=== PATIENT | female | born 1970 | race Two or more races ===

== ENCOUNTER 2021-11-05 16:52 | Emergency (ER) | payer SELFPAY ==
[~2021-11-05] VITALS: Ht 152.4 cm; Wt 76.6 kg
[2021-11-05 17:19] VITALS: BP 164/97
--- NOTE | 2021-11-05 18:53 | RAD ---
EXAMINATION: XR EXAM OF ANKLE_LEFT 3V CLINICAL HISTORY: Pain following fall. TECHNIQUE: XR EXAM OF ANKLE_LEFT 3V COMPARISON: None FINDINGS/ IMPRESSION: Joint spaces and alignment maintained. No acute fracture. Tiny posterior calcaneal enthesophyte. Mild soft tissue swelling through the ankle. Electronically signed by: Steve Ortega DO (11/05/2021 6:51 PM) [employer]
[2021-11-05] MEDS ORDERED: NAPR-514 PO (19:21)
--- NOTE | 2021-11-05 19:21 | PHYS DOC ---
Past Medical History Past Surgical History: No Surgical History Smoking Status: Never Smoker Alcohol Use: None General Adult EDM: Chief Complaint: ANKLE PROBLEM HPI: HPI: Patient is a 51 year old female with no significant medical history who presents the ED today complaining of a sharp 7 out of 10 left ankle pain that began yesterday after she tripped and fell down one step. Patient denies any loss of consciousness. Denies any chance she hit her head on the ground. Denies any neck pain. Describes the pain as sharp and intermittent worse on weightbearing. Patient denies anything specifically relieving her pain. Patient is Maori-speaking and interpretation is provided by family member Review of Systems: Review of Systems: Constitutional: Denies fever or chills. [] Musculoskeletal: Reports left ankle pain. Denies back pain or joint pain. [] Integument: Denies rash. [] Neurologic: Denies headache, focal weakness or sensory changes. [] Psychiatric: Denies depression or anxiety. [] Heart Score: C/O Chest Pain: N/A Risk Factors: Risk Factors: DM, Current or recent (<one month) smoker, HTN, HLP, family history of CAD, obesity. Risk Scores: Score 0 - 3: 2.5% MACE over next 6 weeks - Discharge Home Score 4 - 6: 20.3% MACE over next 6 weeks - Admit for Clinical Observation Score 7 - 10: 72.7% MACE over next 6 weeks - Early Invasive Strategies Allergies: Allergies: Allergies Coded Allergies Type Severity Reaction Last Updated Verified No Known Drug Allergies 11/05/21 No Physical Exam: PE: Constitutional: Well developed, well nourished, no acute distress, non-toxic appearance. [] Skin: Warm, dry, no erythema, no rash. [] Back: No tenderness, no CVA tenderness. [] Extremities: Left ankle with soft tissue swelling around it. Tenderness diffusely throughout the ankle. Full range of motion to the ankle and foot. +2 left pedal pulse. Cap refill less than 2 sec to left toes. Sensation intact to the left foot and toes. [] Neurologic: Alert and oriented X 3, normal motor function, normal sensory function, no focal deficits noted. [] Psychologic: Affect normal, judgement normal, mood normal. [] Current Patient Data: Vital Signs: Vital Signs Date Time Temp Pulse Resp B/P (MAP) Pulse Ox O2 Delivery O2 Flow Rate FiO2 11/05/21 17:19 98.5 67 18 164/97 (119) 98 Room Air 98.5 EKG: EKG: [] Radiology/Procedures: Radiology/Procedures: []PROCEDURE: ANKLE LEFT 3V EXAMINATION: XR EXAM OF ANKLE_LEFT 3V CLINICAL HISTORY: Pain following fall. TECHNIQUE: XR EXAM OF ANKLE_LEFT 3V COMPARISON: None FINDINGS/ IMPRESSION: Joint spaces and alignment maintained. No acute fracture. Tiny posterior calcaneal enthesophyte. Mild soft tissue swelling through the ankle. Electronically signed by: Steve Slade DO (11/05/2021 6:51 PM) [facility] DICTATED and SIGNED BY: STEVE SLADE DO DATE: 11/05/21 [id number] 0 Course & Med Decision Making: Course & Med Decision Making Pertinent Labs and Imaging studies reviewed. (See chart for details) This a 51-year-old female patient presented to the ED today with left ankle pain that began yesterday after she tripped and fell. Left ankle x-rays are negative for any acute findings. Grupo bandage applied to the left ankle as well as Aircast by the ED RN, neurovascular exam done by the RN is normal. Ice elevation encouraged. OTC pain relievers. Follow-up with orthopedic doctor in 1 week Luda Disclaimer: Luda Disclaimer: This electronic medical record was generated, in whole or in part, using a voice recognition dictation system. Departure Departure Impression: Primary Impression: Fall Qualified Codes: W19.XXXA - Unspecified fall, initial encounter Additional Impression: Ankle sprain Qualified Codes: S93.402A - Sprain of unspecified ligament of left ankle, initial encounter Disposition: HOME / SELF CARE / HOMELESS Condition: STABLE Referrals: UNKNOWN PCP NAME (PCP) DK GALINDO II, MD follow up in one week Patient Instructions: Ankle Sprain, Acute, with Phase I Rehab-SportsMed Additional Instructions: You were seen for left ankle pain, your left ankle x-rays are negative for any acute findings, try to ice and elevate the extremity. Follow-up with orthopedic doctor in 1 week. Wear the Grupo bandage and Aircast provided as tolerated for 1 to 2 weeks. Scripts Naproxen (NAPROXEN) 500 Mg Tablet 1 TAB PO BID for pain, #14 TAB 0 Refills Prov: MUTUNGA,PRATIMA M DIRECTOR OF ACQUISITIONS 11/05/21 PRATIMA BOLAND APRN Nov 05, 2021 19:21
== END 2021-11-05 19:30 | disposition home or self-care (01) ==
LOC: ER 16:52
DX: S93.402A Sprain of unspecified ligament of left ankle, initial encounter (principal); W10.9XXA Fall (on) (from) unspecified stairs and steps, initial encounter; Y93.89 Activity, other specified; Y92.89 Other specified places as the place of occurrence of the external cause; Y99.8 Other external cause status
CPT/HCPCS: 73610; 99283; L4350